=== PATIENT | male | born 1985 | race Caucasian/White ===

== ENCOUNTER → 2017-11-12 | Outpatient (CLI) | payer OTHER ==
[~2017-11-12] MED LIST: ALBUMIN IV; AMOX500 PO; AZIT250 PO; BP MED; Baclofen10 MG PO; CEPH500 PO; CIPR500 PO; CLARITIN PO; CLIN300 PO; CRUTCH2 USE; CYCL10 PO; Cyclobenzaprine5 MG PO; DIPH50 PO; DOCU100 PO; FURO20 PO; GUAPHELA PO; HYDACE5 PO; HYDGUAL120 PO; HYDR1TAB94 PO; IBUP400 PO; LORATADINE10 MG PO; METPRE4DP PO; NADO40 PO; NAPR500 PO; NEXIUM 24HR20 M1 PO; NICO21TP TOP; Nicotine Patch1 EAC5 TD; Norco 10-325 T1 EACH PO; Norco 5-325 Ta1 EACH PO; ONDA4ODT MM; PANT40 PO; RXHYDACE PO; RXHYDGUAS PO; Roxicodone5 MG PO; SPIR50 PO; SULI150 PO; THIA100 PO; Ultram50 MG PO; Vitamin B Comple1 EA PO
== END ==
LOC: PLD 07:37 → LAB SHORT 07:37
DX: L30.5 Pityriasis alba (principal)
CPT/HCPCS: 88312

== ENCOUNTER 2018-06-05 12:33 | Inpatient (IN) | payer OTHER ==
[~2018-06-05] VITALS: Ht 182.9 cm; Wt 122.7 kg
[~2018-06-05 12:33] MED LIST changes: -ALBUMIN IV; -CLARITIN PO; -Cyclobenzaprine5 MG PO; -DIPH50 PO; -FURO20 PO; -HYDR1TAB94 PO; -IBUP400 PO; -LORATADINE10 MG PO; -NADO40 PO; -NEXIUM 24HR20 M1 PO; -NICO21TP TOP; -Nicotine Patch1 EAC5 TD; -ONDA4ODT MM; -PANT40 PO; -Roxicodone5 MG PO; -SPIR50 PO; -THIA100 PO; -Vitamin B Comple1 EA PO
[2018-06-05] MEDS ORDERED: DIPH50 PO (12:51)
[2018-06-05] MEDS ORDERED: LORATADINE10 MG PO (15:44)
[2018-06-06 06:26] LABS: Alanine Aminotransfer (ALT/SGP 43 U/L (12-78); Albumin, Blood 2.4 g/dL (3.4-5.0); Albumin/Globulin Ratio 0.5 (0.8-1.8); Alk Phos 232 U/L (50-136); Anion Gap 9 mmol/L (6-16); Aspartate Aminotrans (AST/SGOT 159 U/L (12-37); Bilirubin, Direct 10.8 mg/dL (0.0-0.3); Bilirubin, Indirect 2.3 mg/dL (0.1-0.7); Bilirubin, Total 13.1 mg/dL (0.1-1.0); Blood Urea Nitrogen 4 mg/dL (8-24); CO2, Blood 26 mmol/L (21-32); Calcium, Blood 7.8 mg/dL (8.5-10.1); Chloride, Blood 101 mmol/L (98-108); Globulin, Blood 4.9 g/dL (2.2-4.0); Glomerular Filtration Rate >60 (60-); Glucose, Blood 81 mg/dL (70-99); Magnesium, Blood 2.1 mg/dL (1.6-2.4); Potassium, Blood 3.5 mmol/L (3.5-5.5); Sodium, Blood 136 mmol/L (136-145); Total Protein, Blood 7.3 g/dL (6.4-8.2)
[2018-06-07 05:35] LABS: BASOPHILS ABSOLUTE AUTO 0.12 K/mm3 (0.00-0.23); BASOPHILS PERCENT AUTO 2 % (0-2); EOSINOPHILS ABSOLUTE AUTO 0.08 K/mm3 (0.00-0.68); EOSINOPHILS PERCENT AUTO 1 % (0-6); Hematocrit 36.2 % (37.0-53.0); Hemoglobin 13.2 g/dL (13.5-17.5); IMMATURE GRAN ABSOLUTE AUTO 0.04 K/mm3 (0.00-0.10); IMMATURE GRAN PERCENT AUTO 1 % (0-1); LYMPHOCYTES ABSOLUTE AUTO 1.32 K/mm3 (0.84-5.20); LYMPHOCYTES PERCENT AUTO 17 % (21-46); MONOCYTES ABSOLUTE AUTO 0.95 K/mm3 (0.16-1.47); MONOCYTES PERCENT AUTO 12 % (4-13); Mean Corpuscular HGB 35.5 pg (26.0-34.0); Mean Corpuscular HGB Conc 36.5 g/dL (31.5-36.5); Mean Corpuscular Volume 97 fL (80-100); Mean Platelet Volume 9.9 fL (9.1-12.4); NEUTROPHILS ABSOLUTE AUTO 5.46 K/mm3 (1.96-9.15); NEUTROPHILS PERCENT AUTO 69 % (41-73); Platelet Count 161 K/mm3 (150-400); RDW Coefficient Variation 19.4 % (11.7-14.2); RDW Standard Deviation 69.1 fL (35.1-46.3); Red Blood Cell Count 3.72 M/mm3 (4.30-5.90); White Blood Cell Count 7.97 K/mm3 (4.00-11.30)
[2018-06-07 06:10] LABS: Alanine Aminotransfer (ALT/SGP 39 U/L (12-78); Albumin, Blood 2.4 g/dL (3.4-5.0); Albumin/Globulin Ratio 0.5 (0.8-1.8); Alk Phos 211 U/L (50-136); Anion Gap 10 mmol/L (6-16); Aspartate Aminotrans (AST/SGOT 151 U/L (12-37); Bilirubin, Indirect 5.4 mg/dL (0.1-0.7); Bilirubin, Total 20.4 mg/dL (0.1-1.0); Blood Urea Nitrogen 6 mg/dL (8-24); Bun/Creatinine Ratio 11.7 (12.0-20.0); CO2, Blood 25 mmol/L (21-32); Calcium, Blood 8.3 mg/dL (8.5-10.1); Chloride, Blood 100 mmol/L (98-108); Creatinine, Blood 0.52 mg/dL (0.60-1.20); Globulin, Blood 4.7 g/dL (2.2-4.0); Glomerular Filtration Rate >60 (60-); Glucose, Blood 71 mg/dL (70-99); Potassium, Blood 3.6 mmol/L (3.5-5.5); Sodium, Blood 135 mmol/L (136-145); Total Protein, Blood 7.1 g/dL (6.4-8.2)
[2018-06-08] MEDS ORDERED: Nicotine Patch1 EAC5 TD (11:49)
[2018-06-08] MEDS ORDERED: THIA100 PO (11:50)
== END 2018-06-08 12:52 | disposition home or self-care (01) | DRG 442 ==
LOC: ER 12:33 → MEDS 14:00 → ENPENDDIS 06-08 10:06 → MEDS 06-08 12:52
PROVIDERS: Hospitalist
DX: K72.00 Acute and subacute hepatic failure without coma (principal); F10.231 Alcohol dependence with withdrawal delirium; K70.11 Alcoholic hepatitis with ascites; M54.9 Dorsalgia, unspecified; F95.2 Tourette's disorder; I10 Essential (primary) hypertension; F17.210 Nicotine dependence, cigarettes, uncomplicated; E87.6 Hypokalemia; F41.9 Anxiety disorder, unspecified; Z63.72 Alcoholism and drug addiction in family; E78.89 Other lipoprotein metabolism disorders; R16.0 Hepatomegaly, not elsewhere classified
CPT/HCPCS: 36415; 76700; 80048; 80053; 80076; 82140; 83690; 83735; 85025; 85610; 85730; 86704; 86708; 86803; 87340; 87493; 96374; 99285-25; J2060; J3411; J3475; J7042

== ENCOUNTER 2018-06-17 16:24 | Emergency (ER) | payer OTHER ==
[~2018-06-17] VITALS: Ht 182.9 cm; Wt 122.5 kg
[~2018-06-17 16:24] MED LIST changes: +DIPH50 PO; +LORATADINE10 MG PO; +Nicotine Patch1 EAC5 TD; +THIA100 PO
[2018-06-17 16:49] LABS: BASOPHILS ABSOLUTE AUTO 0.15 K/mm3 (0.00-0.23); BASOPHILS PERCENT AUTO 1 % (0-2); EOSINOPHILS ABSOLUTE AUTO 0.07 K/mm3 (0.00-0.68); EOSINOPHILS PERCENT AUTO 0 % (0-6); Hematocrit 38.8 % (37.0-53.0); Hemoglobin 14.1 g/dL (13.5-17.5); IMMATURE GRAN ABSOLUTE AUTO 0.29 K/mm3 (0.00-0.10); IMMATURE GRAN PERCENT AUTO 2 % (0-1); LYMPHOCYTES ABSOLUTE AUTO 1.37 K/mm3 (0.84-5.20); LYMPHOCYTES PERCENT AUTO 8 % (21-46); MONOCYTES ABSOLUTE AUTO 1.29 K/mm3 (0.16-1.47); MONOCYTES PERCENT AUTO 8 % (4-13); Mean Corpuscular HGB 36.5 pg (26.0-34.0); Mean Corpuscular HGB Conc 36.3 g/dL (31.5-36.5); Mean Platelet Volume 9.5 fL (9.1-12.4); NEUTROPHILS ABSOLUTE AUTO 13.24 K/mm3 (1.96-9.15); NEUTROPHILS PERCENT AUTO 81 % (41-73); Platelet Count 311 K/mm3 (150-400); RDW Coefficient Variation 19.9 % (11.7-14.2); RDW Standard Deviation 72.6 fL (35.1-46.3); Red Blood Cell Count 3.86 M/mm3 (4.30-5.90); White Blood Cell Count 16.41 K/mm3 (4.00-11.30)
[2018-06-17 16:50] LABS: Mean Corpuscular Volume 101 fL (80-100)
[2018-06-17 17:10] LABS: Alanine Aminotransfer (ALT/SGP 74 U/L (12-78); Albumin, Blood 2.3 g/dL (3.4-5.0); Albumin/Globulin Ratio 0.5 (0.8-1.8); Alk Phos 227 U/L (50-136); Anion Gap 10 mmol/L (6-16); Aspartate Aminotrans (AST/SGOT 206 U/L (12-37); Blood Urea Nitrogen 11 mg/dL (8-24); Bun/Creatinine Ratio 17.1 (12.0-20.0); CO2, Blood 24 mmol/L (21-32); Calcium, Blood 8.4 mg/dL (8.5-10.1); Chloride, Blood 97 mmol/L (98-108); Creatinine, Blood 0.64 mg/dL (0.60-1.20); Glomerular Filtration Rate >60 (60-); Glucose, Blood 105 mg/dL (70-99); Potassium, Blood 3.8 mmol/L (3.5-5.5); Sodium, Blood 131 mmol/L (136-145); Total Protein, Blood 7.3 g/dL (6.4-8.2)
[2018-06-17] MEDS ORDERED: IBUP400 PO (21:56)
== END 2018-06-17 22:11 | disposition home or self-care (01) ==
LOC: ER 16:24
PROVIDERS: Emergency Medicine
DX: K70.10 Alcoholic hepatitis without ascites (principal); M54.9 Dorsalgia, unspecified; Z88.2 Allergy status to sulfonamides; Z79.899 Other long term (current) drug therapy; F17.210 Nicotine dependence, cigarettes, uncomplicated
CPT/HCPCS: 36415; 76705; 80053; 83690; 85025; 99284-25

== ENCOUNTER 2018-06-28 08:59 | Day surgery (SDC) | payer OTHER ==
[~2018-06-28 08:59] MED LIST changes: +IBUP400 PO
[2018-06-28 09:34] LABS: BASOPHILS PERCENT AUTO 1 % (0-2); EOSINOPHILS ABSOLUTE AUTO 0.11 K/mm3 (0.00-0.68); EOSINOPHILS PERCENT AUTO 1 % (0-6); Hemoglobin 13.9 g/dL (13.5-17.5); IMMATURE GRAN ABSOLUTE AUTO 0.16 K/mm3 (0.00-0.10); IMMATURE GRAN PERCENT AUTO 1 % (0-1); LYMPHOCYTES ABSOLUTE AUTO 1.62 K/mm3 (0.84-5.20); LYMPHOCYTES PERCENT AUTO 9 % (21-46); MONOCYTES ABSOLUTE AUTO 1.63 K/mm3 (0.16-1.47); MONOCYTES PERCENT AUTO 9 % (4-13); Mean Corpuscular HGB 35.9 pg (26.0-34.0); Mean Corpuscular HGB Conc 35.6 g/dL (31.5-36.5); Mean Corpuscular Volume 101 fL (80-100); Mean Platelet Volume 9.4 fL (9.1-12.4); NEUTROPHILS ABSOLUTE AUTO 15.51 K/mm3 (1.96-9.15); NEUTROPHILS PERCENT AUTO 81 % (41-73); Platelet Count 278 K/mm3 (150-400); RDW Coefficient Variation 17.6 % (11.7-14.2); Red Blood Cell Count 3.87 M/mm3 (4.30-5.90); White Blood Cell Count 19.13 K/mm3 (4.00-11.30)
[2018-06-28 09:48] LABS: International Normalized Ratio 1.83; Prothrombin Time Results 18.2 Sec (9.7-11.5)
[2018-06-28 09:51] LABS: Alpha Feto Protein, Tumor Mkr 3.1 ng/mL (0.0-8.0); Percent Saturation 34.4 % (20.0-50.0)
[2018-06-28 09:56] LABS: Glutamyl Transpeptidase, GGT 188 U/L (15-85)
[2018-06-28 09:57] LABS: Alanine Aminotransfer (ALT/SGP 131 U/L (12-78); Albumin/Globulin Ratio 0.4 (0.8-1.8); Alk Phos 294 U/L (50-136); Anion Gap 9 mmol/L (6-16); Aspartate Aminotrans (AST/SGOT 246 U/L (12-37); Blood Urea Nitrogen 27 mg/dL (8-24); Bun/Creatinine Ratio 21.1 (12.0-20.0); CO2, Blood 24 mmol/L (21-32); Calcium, Blood 8.2 mg/dL (8.5-10.1); Chloride, Blood 94 mmol/L (98-108); Creatinine, Blood 1.28 mg/dL (0.60-1.20); Globulin, Blood 4.8 g/dL (2.2-4.0); Glomerular Filtration Rate >60 (60-); Glucose, Blood 81 mg/dL (70-99); Potassium, Blood 4.2 mmol/L (3.5-5.5); Sodium, Blood 127 mmol/L (136-145); Total Protein, Blood 6.8 g/dL (6.4-8.2)
[2018-06-28 10:00] LABS: Bilirubin, Total 24.6 mg/dL (0.1-1.0)
[2018-06-28 10:45] LABS: Automated BF WBC Count 0.095 K/mm3 (0-999); Body Fluid WBC Count 95 /mm3 (0-999)
[2018-06-28 10:56] LABS: Albumin, Body Fluid 0.3 g/dL; Protein, Body Fluid 0.6 g/dL
[2018-06-28 11:33] LABS: RBC Count, Body Fluid 133 /mm3 (0-0)
[2018-06-28 11:49] LABS: Appearance, Body Fluid Clear (Clear); Color, Body Fluid Yellow (None-Yellow)
[2018-06-28 11:50] LABS: Total Cell Count, Body Fluid 100
[2018-06-29 10:09] LABS: HBSAG SCREEN Negative (Negative); HEP A AB, IGM Negative (Negative); HEP B CORE AB, IGM Negative (Negative); HEP C VIRUS AB 0.1 (0.0-0.9)
[2018-07-06] MEDS ORDERED: Roxicodone5 MG PO (16:09)
== END 2018-06-28 22:40 | disposition home or self-care (01) ==
LOC: US 08:59
PROVIDERS: Internal Medicine Gastroenterology
DX: K70.10 Alcoholic hepatitis without ascites (principal); R18.8 Other ascites; F10.20 Alcohol dependence, uncomplicated
CPT/HCPCS: 36415; 49083; 80053; 80074; 82042; 82105; 82140; 82390; 82728; 82977; 83516; 83540; 83550; 84157; 85025; 85610; 86038; 86376; 88108; 89051

== ENCOUNTER 2018-06-30 08:49 | Day surgery (SDC) | payer OTHER ==
[2018-07-01] MEDS ORDERED: Roxicodone5 MG PO (22:33)
[2018-07-06] MEDS ORDERED: Roxicodone5 MG PO (16:09)
== END 2018-06-30 16:14 | disposition home or self-care (01) ==
LOC: ATC 08:49
DX: N17.9 Acute kidney failure, unspecified (principal)
CPT/HCPCS: 96365; 96366; P9041

== ENCOUNTER 2018-07-01 00:17 | Day surgery (SDC) | payer OTHER ==
[2018-07-01 15:16] LABS: Source, Urine Clean Catch
[2018-07-01 15:27] LABS: Appearance, Urine Clear (Clear); Blood, Urine 2+ (Neg); Color, Urine Yellow (P-Yellow); Glucose Qualitative, Urine Neg (Neg); Ketones, Urine Neg (Neg); Leukocyte Esterase, Urine 1+ (Neg); Nitrite, Urine Neg (Neg); Protein, Urine 1+ (Neg); Urobilinogen, Urine 2+ (Normal)
[2018-07-01 15:44] LABS: Creatinine, Urine Random 70.8 mg/dL (27.00-270.00)
[2018-07-01 15:45] LABS: Bilirubin, Urine 3+ (Neg)
[2018-07-01 15:47] LABS: Hyaline Casts 0-2 /lpf (0-2)
[2018-07-01 15:48] LABS: Bacteria Rare /hpf; Red Blood Cells, Urine 0-2 /hpf (0-2); Squamous Epithelial Cells Rare /hpf (Few); Transitional Epithelial Cells Few /hpf (0-Rare)
[2018-07-01] MEDS ORDERED: Roxicodone5 MG PO (22:33)
[2018-07-06] MEDS ORDERED: Roxicodone5 MG PO (16:09)
== END 2018-07-01 18:04 | disposition home or self-care (01) ==
LOC: ATC 00:17
PROVIDERS: Internal Medicine Gastroenterology
DX: K70.10 Alcoholic hepatitis without ascites (principal); N17.9 Acute kidney failure, unspecified
CPT/HCPCS: 81001; 82570; 84300; 87086; 96365; 96366; P9041

== ENCOUNTER 2018-07-01 19:57 | Emergency (ER) | payer OTHER ==
[~2018-07-01] VITALS: Ht 182.9 cm; Wt 127.0 kg
[2018-07-01 21:03] LABS: Source, Urine Clean Catch
[2018-07-01 21:05] LABS: Blood, Urine 2+ (Neg); Glucose Qualitative, Urine Neg (Neg); Ketones, Urine Neg (Neg); Leukocyte Esterase, Urine 1+ (Neg); Nitrite, Urine Neg (Neg); Protein, Urine 1+ (Neg); Urobilinogen, Urine 1+ (Normal)
[2018-07-01 21:14] LABS: Appearance, Urine Clear (Clear); Bilirubin, Urine 2+ (Neg); Color, Urine Amber (P-Yellow)
[2018-07-01 21:15] LABS: Amorphous Light (0-Heavy); Bacteria Few /hpf; Granular Casts 0-2 /lpf (0); Red Blood Cells, Urine 0-2 /hpf (0-2); Squamous Epithelial Cells Rare /hpf (Few)
[2018-07-01 21:16] LABS: Epithelial Cell Casts 0-2 /lpf (0)
[2018-07-01 21:55] LABS: BASOPHILS ABSOLUTE AUTO 0.07 K/mm3 (0.00-0.23); BASOPHILS PERCENT AUTO 1 % (0-2); EOSINOPHILS ABSOLUTE AUTO 0.16 K/mm3 (0.00-0.68); EOSINOPHILS PERCENT AUTO 1 % (0-6); Hematocrit 32.7 % (37.0-53.0); Hemoglobin 11.4 g/dL (13.5-17.5); IMMATURE GRAN ABSOLUTE AUTO 0.11 K/mm3 (0.00-0.10); IMMATURE GRAN PERCENT AUTO 1 % (0-1); LYMPHOCYTES ABSOLUTE AUTO 1.26 K/mm3 (0.84-5.20); LYMPHOCYTES PERCENT AUTO 9 % (21-46); MONOCYTES ABSOLUTE AUTO 1.32 K/mm3 (0.16-1.47); MONOCYTES PERCENT AUTO 10 % (4-13); Mean Corpuscular HGB 36.4 pg (26.0-34.0); Mean Corpuscular HGB Conc 34.9 g/dL (31.5-36.5); Mean Platelet Volume 9.1 fL (9.1-12.4); NEUTROPHILS PERCENT AUTO 79 % (41-73); Platelet Count 165 K/mm3 (150-400); RDW Coefficient Variation 17.2 % (11.7-14.2); RDW Standard Deviation 65.3 fL (35.1-46.3); Red Blood Cell Count 3.13 M/mm3 (4.30-5.90); White Blood Cell Count 13.82 K/mm3 (4.00-11.30)
[2018-07-01 21:56] LABS: Mean Corpuscular Volume 105 fL (80-100)
[2018-07-01 22:09] LABS: International Normalized Ratio 1.76; Prothrombin Time Results 17.6 Sec (9.7-11.5)
[2018-07-01 22:17] LABS: Alanine Aminotransfer (ALT/SGP 96 U/L (12-78); Albumin, Blood 3.4 g/dL (3.4-5.0); Alk Phos 219 U/L (50-136); Anion Gap 11 mmol/L (6-16); Aspartate Aminotrans (AST/SGOT 173 U/L (12-37); Bilirubin, Total 23.1 mg/dL (0.1-1.0); Blood Urea Nitrogen 34 mg/dL (8-24); Bun/Creatinine Ratio 28.6 (12.0-20.0); CO2, Blood 24 mmol/L (21-32); Calcium, Blood 8.2 mg/dL (8.5-10.1); Chloride, Blood 97 mmol/L (98-108); Creatinine, Blood 1.19 mg/dL (0.60-1.20); Globulin, Blood 3.5 g/dL (2.2-4.0); Glomerular Filtration Rate >60 (60-); Glucose, Blood 102 mg/dL (70-99); Potassium, Blood 4.2 mmol/L (3.5-5.5); Sodium, Blood 132 mmol/L (136-145); Total Protein, Blood 6.9 g/dL (6.4-8.2)
[2018-07-01] MEDS ORDERED: Roxicodone5 MG PO (22:33)
== END 2018-07-01 23:04 | disposition home or self-care (01) ==
LOC: ER 19:57
PROVIDERS: Emergency Medicine
DX: K70.31 Alcoholic cirrhosis of liver with ascites (principal); Z88.2 Allergy status to sulfonamides; Z79.899 Other long term (current) drug therapy; F17.210 Nicotine dependence, cigarettes, uncomplicated
CPT/HCPCS: 36415; 80053; 81001; 82140; 83690; 85025; 85610; 87086; 99284

== ENCOUNTER 2018-08-10 13:10 | Day surgery (SDC) | payer OTHER ==
[~2018-08-10 13:10] MED LIST changes: +ALBUMIN IV; +CLARITIN PO; +Cyclobenzaprine5 MG PO; +FURO20 PO; +HYDR1TAB94 PO; +NADO40 PO; +NEXIUM 24HR20 M1 PO; +NICO21TP TOP; +ONDA4ODT MM; +PANT40 PO; +Roxicodone5 MG PO; +SPIR50 PO; +Vitamin B Comple1 EA PO
[2018-08-10 14:11] LABS: Anion Gap 8 mmol/L (6-16); Blood Urea Nitrogen 8 mg/dL (8-24); Bun/Creatinine Ratio 9.1 (12.0-20.0); CO2, Blood 24 mmol/L (21-32); Calcium, Blood 8.9 mg/dL (8.5-10.1); Chloride, Blood 103 mmol/L (98-108); Creatinine, Blood 0.88 mg/dL (0.60-1.20); Glomerular Filtration Rate >60 (60-); Glucose, Blood 105 mg/dL (70-99); Phosphorus, Blood 4.5 mg/dL (2.5-4.9); Potassium, Blood 4.1 mmol/L (3.5-5.5); Sodium, Blood 135 mmol/L (136-145)
[2018-09-28] MEDS ORDERED: SILD50TA PO (11:13)
[2018-09-28] MEDS ORDERED: B Complex #11 EACH PO (11:13)
[2018-11-10] MEDS ORDERED: PANT40 PO (14:55)
[2018-11-10] MEDS ORDERED: SILD25T PO (14:55)
[2018-11-10] MEDS ORDERED: SPIR50 PO (14:55)
[2018-11-10] MEDS ORDERED: Vitamin B Comple1 EA PO (14:55)
[2018-11-10] MEDS ORDERED: PROP10 PO (14:56)
[2018-11-10] MEDS ORDERED: FURO40 PO (14:56)
[2018-11-10] MEDS ORDERED: Omeprazole20 M1 PO (14:56)
== END 2018-08-10 23:09 | disposition home or self-care (01) ==
LOC: US 13:10 → LAB 13:10 → US 14:00
PROVIDERS: Internal Medicine
DX: N17.9 Acute kidney failure, unspecified (principal); K70.11 Alcoholic hepatitis with ascites
CPT/HCPCS: 36415; 80069; 85730

== ENCOUNTER 2018-10-19 13:30 | Day surgery (SDC) | payer OTHER ==
[~2018-10-19 13:30] MED LIST changes: +B Complex #11 EACH PO; +SILD50TA PO
[2018-11-10] MEDS ORDERED: PANT40 PO (14:55)
[2018-11-10] MEDS ORDERED: Vitamin B Comple1 EA PO (14:55)
[2018-11-10] MEDS ORDERED: SPIR50 PO (14:55)
[2018-11-10] MEDS ORDERED: SILD25T PO (14:55)
[2018-11-10] MEDS ORDERED: FURO40 PO (14:56)
[2018-11-10] MEDS ORDERED: PROP10 PO (14:56)
[2018-11-10] MEDS ORDERED: Omeprazole20 M1 PO (14:56)
== END 2018-10-19 15:09 | disposition home or self-care (01) ==
LOC: ORSCSDS 13:30
PROVIDERS: Internal Medicine Gastroenterology
PROC: 06L38CZ Occlusion of Esophageal Vein with Extraluminal Device, Via Natural or Artificial Opening Endoscopic (ICD-10-PCS; principal; 2018-10-19 14:45)
DX: I85.00 Esophageal varices without bleeding (principal); K76.6 Portal hypertension; K70.11 Alcoholic hepatitis with ascites; I10 Essential (primary) hypertension; Z68.35 Body mass index [BMI] 35.0-35.9, adult; K31.89 Other diseases of stomach and duodenum; E66.9 Obesity, unspecified; Z79.899 Other long term (current) drug therapy
CPT/HCPCS: J2250; J7120

== ENCOUNTER 2018-11-25 09:48 | Day surgery (SDC) | payer OTHER ==
[~2018-11-25] VITALS: Ht 182.9 cm; Wt 112.7 kg
[~2018-11-25 09:48] MED LIST changes: +FURO40 PO; +Omeprazole20 M1 PO; +PROP10 PO; +SILD25T PO
--- NOTE | 2018-11-25 12:53 | NUR ---
11/25/18 1253 Anna Frost PT. WITH BLOODY NOSE AFTER PROCEDURE. DR. LAROSE AWARE. PT. INSTRUCTED PROBABLY FROM HIS NASAL CANNULA BUT IF CONTINUED TO MAKE SURE & CALL NOSE WASN'T BLEEDING UPON DISCHARGE.
== END 2018-11-25 12:05 | disposition home or self-care (01) ==
LOC: ORSCSDS 09:48
PROVIDERS: Internal Medicine Gastroenterology
PROC: 06L38CZ Occlusion of Esophageal Vein with Extraluminal Device, Via Natural or Artificial Opening Endoscopic (ICD-10-PCS; principal; 2018-11-25 11:00)
DX: I85.00 Esophageal varices without bleeding (principal); K70.10 Alcoholic hepatitis without ascites; I10 Essential (primary) hypertension; K74.60 Unspecified cirrhosis of liver; F17.210 Nicotine dependence, cigarettes, uncomplicated; E66.9 Obesity, unspecified; Z68.33 Body mass index [BMI] 33.0-33.9, adult; K76.6 Portal hypertension; K31.89 Other diseases of stomach and duodenum; Z79.899 Other long term (current) drug therapy
CPT/HCPCS: J7120

== ENCOUNTER 2019-01-24 12:50 | Day surgery (SDC) | payer OTHER ==
--- NOTE | 2019-01-24 13:06 | NUR ---
INTO [facility] ADMISSION STARTED. Ambulatory in Day Surgery Patient States Post-Procedure ride home has been arranged. History, Chart, Medications and Allergies reviewed before start of procedure.Lungs clear T/O to Auscultation.
--- NOTE | 2019-01-24 13:58 | NUR ---
01/24/19 1358 Benedict Amador Bite Block Placed3-LEAD EKG REVIEWED WITH PHYSICIAN PRIOR TO START OF PROCEDURE.Patient to ENDO 2. History, Chart, Medications and Allergies reviewed before start of procedure. MONITOR INTACT WITH CONTINUOUS PULSE OXIMETRY AND INTERMITTENT BP.O2 VIA N/C INTACT THROUGHOUT SEDATION/PROCEDURE.See Anesthesia record.
--- NOTE | 2019-01-24 14:42 | NUR ---
Discharge instructions reviewed with patient. Patient verbalizes understanding. Copy given to patient to take home. Patient States Post-Procedure ride home has been arranged. Discharged via wheelchair to private car for ride home.
== END 2019-01-24 22:50 | disposition home or self-care (01) ==
LOC: ORSCMMR 12:50 → ORD 14:15 → ORSCMMR 22:50
PROVIDERS: Internal Medicine Gastroenterology
PROC: 0DJ08ZZ Inspection of Upper Intestinal Tract, Via Natural or Artificial Opening Endoscopic (ICD-10-PCS; principal; 2019-01-24 14:15)
DX: K74.60 Unspecified cirrhosis of liver (principal); I85.00 Esophageal varices without bleeding; F17.210 Nicotine dependence, cigarettes, uncomplicated; Z79.899 Other long term (current) drug therapy
CPT/HCPCS: J2704; J7120

== ENCOUNTER 2019-02-28 09:31 | Inpatient (IN) | payer OTHER ==
[~2019-02-28] VITALS: Ht 180.3 cm; Wt 117.8 kg
[2019-02-28 10:31] LABS: BASOPHILS ABSOLUTE AUTO 0.03 K/mm3 (0.00-0.23); BASOPHILS PERCENT AUTO 1 % (0-2); EOSINOPHILS ABSOLUTE AUTO 0.16 K/mm3 (0.00-0.68); EOSINOPHILS PERCENT AUTO 3 % (0-6); Hemoglobin 11.2 g/dL (13.5-17.5); IMMATURE GRAN ABSOLUTE AUTO 0.01 K/mm3 (0.00-0.10); IMMATURE GRAN PERCENT AUTO 0 % (0-1); LYMPHOCYTES ABSOLUTE AUTO 1.27 K/mm3 (0.84-5.20); LYMPHOCYTES PERCENT AUTO 24 % (21-46); MONOCYTES ABSOLUTE AUTO 0.74 K/mm3 (0.16-1.47); MONOCYTES PERCENT AUTO 14 % (4-13); Mean Corpuscular HGB 23.3 pg (26.0-34.0); Mean Corpuscular HGB Conc 30.3 g/dL (31.5-36.5); Mean Corpuscular Volume 77 fL (80-100); Mean Platelet Volume 9.6 fL (9.1-12.4); NEUTROPHILS ABSOLUTE AUTO 3.01 K/mm3 (1.96-9.15); NEUTROPHILS PERCENT AUTO 58 % (41-73); Platelet Count 122 K/mm3 (150-400); RDW Coefficient Variation 17.1 % (11.7-14.2); RDW Standard Deviation 47.6 fL (35.1-46.3); White Blood Cell Count 5.22 K/mm3 (4.00-11.30)
[2019-02-28 10:58] LABS: Ethanol (Alcohol), Blood, Med <3 mg/dL
[2019-02-28 10:59] LABS: Alanine Aminotransfer (ALT/SGP 39 U/L (12-78); Albumin, Blood 3.5 g/dL (3.4-5.0); Albumin/Globulin Ratio 0.9 (0.8-1.8); Alk Phos 160 U/L (50-136); Anion Gap 6 mmol/L (6-16); Aspartate Aminotrans (AST/SGOT 38 U/L (12-37); Bilirubin, Total 0.7 mg/dL (0.1-1.0); Blood Urea Nitrogen 12 mg/dL (8-24); Bun/Creatinine Ratio 14.4 (12.0-20.0); CO2, Blood 24 mmol/L (21-32); Calcium, Blood 8.3 mg/dL (8.5-10.1); Chloride, Blood 108 mmol/L (98-108); Creatinine, Blood 0.83 mg/dL (0.60-1.20); Globulin, Blood 3.8 g/dL (2.2-4.0); Glomerular Filtration Rate >60 (60-); Glucose, Blood 88 mg/dL (70-99); Potassium, Blood 3.7 mmol/L (3.5-5.5); Sodium, Blood 138 mmol/L (136-145); Total Protein, Blood 7.3 g/dL (6.4-8.2)
[2019-02-28 11:08] LABS: International Normalized Ratio 1.35; Prothrombin Time Results 13.9 Sec (9.7-11.5)
[2019-02-28] MEDS ORDERED: Zocor20 MG PO (12:01)
[2019-02-28 12:38] LABS: Alanine Aminotransfer (ALT/SGP 40 U/L (12-78); Albumin, Blood 3.5 g/dL (3.4-5.0); Albumin/Globulin Ratio 0.9 (0.8-1.8); Alk Phos 161 U/L (50-136); Anion Gap 6 mmol/L (6-16); Aspartate Aminotrans (AST/SGOT 38 U/L (12-37); Bilirubin, Total 0.7 mg/dL (0.1-1.0); Blood Urea Nitrogen 12 mg/dL (8-24); Bun/Creatinine Ratio 13.8 (12.0-20.0); CO2, Blood 24 mmol/L (21-32); Calcium, Blood 8.4 mg/dL (8.5-10.1); Chloride, Blood 108 mmol/L (98-108); Creatinine, Blood 0.87 mg/dL (0.60-1.20); Globulin, Blood 3.8 g/dL (2.2-4.0); Glomerular Filtration Rate >60 (60-); Glucose, Blood 74 mg/dL (70-99); Potassium, Blood 3.9 mmol/L (3.5-5.5); Sodium, Blood 138 mmol/L (136-145); Total Protein, Blood 7.3 g/dL (6.4-8.2)
--- NOTE | 2019-02-28 18:18 | NUR ---
SHIFT SUMMARY PT IS A&OX3, WITH ACUTE CHANGES OR COMPLICATIONS SINCE ARRIVING TO OUR FLOOR AT 1630. PT HAS BEEN STARTED ON CLEAR LIQUIDS, VSS, NO PAIN AT THIS TIME. IV'S IN BOTH AC'S, FLUIDS AND PROTONIX RUNNING. CURRENTLY NO NVD. TELE NSR 60'S. BED IN LOWEST POSITION, BLONGINGS IN REACH, CALL LIGHT IN HAND, PT EDUCATED TO SAFETY PROTOCOL.
--- NOTE | 2019-02-28 19:35 | NUR ---
ASSUMED CARE PT RESTING IN ROOM COMFORTABLY AT THIS TIME. PER DAY SHIFT PT TO GO FOR ENDOSCOPY TOMORROW, ON CLEAR LIQUID NO REDS UNTIL 0300, THEN ICE CHIPS AND WATER. PT THEN TO BE NPO AT 0700 FOR SCOPE. RESP EVEN UNLABORED ON RA W/ SATS >95%. DENIES CP, REPORTS CHRONIC BACK PAIN, PT TO BE MEDICATED PER EMAR. PT HAS PROTONIX GTT, AND OCTREOTIDE GTT INFUSING IN BILAT AC PIV'S. PT INDEPENDENT IN ROOM TO RR. PT DENIES BLOODY STOOL, BUT DOES REPORT DIARRHEA. CALL LIGHT IS IN REACH. PT CALLS APPROPRIATELY.
[2019-03-01 04:34] LABS: BASOPHILS ABSOLUTE AUTO 0.05 K/mm3 (0.00-0.23); BASOPHILS PERCENT AUTO 1 % (0-2); EOSINOPHILS ABSOLUTE AUTO 0.18 K/mm3 (0.00-0.68); EOSINOPHILS PERCENT AUTO 4 % (0-6); Hematocrit 35.5 % (37.0-53.0); Hemoglobin 10.6 g/dL (13.5-17.5); IMMATURE GRAN ABSOLUTE AUTO 0.01 K/mm3 (0.00-0.10); IMMATURE GRAN PERCENT AUTO 0 % (0-1); LYMPHOCYTES ABSOLUTE AUTO 1.52 K/mm3 (0.84-5.20); LYMPHOCYTES PERCENT AUTO 32 % (21-46); MONOCYTES ABSOLUTE AUTO 0.66 K/mm3 (0.16-1.47); MONOCYTES PERCENT AUTO 14 % (4-13); Mean Corpuscular HGB 23.2 pg (26.0-34.0); Mean Corpuscular HGB Conc 29.9 g/dL (31.5-36.5); Mean Corpuscular Volume 78 fL (80-100); Mean Platelet Volume 9.8 fL (9.1-12.4); NEUTROPHILS ABSOLUTE AUTO 2.38 K/mm3 (1.96-9.15); NEUTROPHILS PERCENT AUTO 50 % (41-73); Platelet Count 112 K/mm3 (150-400); RDW Coefficient Variation 17.2 % (11.7-14.2); RDW Standard Deviation 47.8 fL (35.1-46.3); Red Blood Cell Count 4.57 M/mm3 (4.30-5.90)
[2019-03-01 04:58] LABS: Alanine Aminotransfer (ALT/SGP 37 U/L (12-78); Albumin, Blood 3.2 g/dL (3.4-5.0); Albumin/Globulin Ratio 0.9 (0.8-1.8); Alk Phos 135 U/L (50-136); Anion Gap 4 mmol/L (6-16); Aspartate Aminotrans (AST/SGOT 39 U/L (12-37); Bilirubin, Total 0.9 mg/dL (0.1-1.0); Blood Urea Nitrogen 11 mg/dL (8-24); Bun/Creatinine Ratio 13.7 (12.0-20.0); CO2, Blood 24 mmol/L (21-32); Chloride, Blood 110 mmol/L (98-108); Globulin, Blood 3.4 g/dL (2.2-4.0); Glomerular Filtration Rate >60 (60-); Glucose, Blood 67 mg/dL (70-99); Sodium, Blood 138 mmol/L (136-145); Total Protein, Blood 6.6 g/dL (6.4-8.2)
[2019-03-01 05:09] LABS: International Normalized Ratio 1.41; Prothrombin Time Results 14.5 Sec (9.7-11.5)
--- NOTE | 2019-03-01 05:38 | NUR ---
SHIFT SUMMARY PT SLEEPING IN ROOM COMFORTABLY AT THIS TIME. NO ACUTE CHANGES IN STATUS T.O NIGHT. PT DID NOT SLEEP WELL, FINALLY FELL ALSEEP AT APPROX 0300. PT REPORTS CAN'T SLEEP ON HIS BACK, PT EDUCATED ABOUT SLEEPING ON SIDE WITH ARM PROPPED ON PILLOW TO PREVENT OCCLUSION OF PIV IN AC. PT ABLE TO SLEEP W/ POSITION ADJUSTMENT. DENIES ANY CP. WAS MEDICATED PER EMAR FOR CHRONIC BACK PAIN. RESP EVEN UNLABORED ON RA W/ SATS >92%. DENIES OTHER NEEDS A THIS TIME. CALL LIGHT IN REACH. PT CALLS APPROPRIATELY.
--- NOTE | 2019-03-01 09:00 | NUR ---
INTO [facility] VIA [facility]. PT REPORTS 7/10 LOW BACK PAIN. DENIES NAUSEA. HISTORY AND ALLERGIES REVIEWED. NPO STATUS CONFIRMED. LUNGS WITH SCATTERED RHONCHI AND WHEEZES THROUGH OUT. SATS>90% ON RA. DR. CERON MADE AWARE OF ADVENTICIOUS BREATH SOUNDS. NO NEW ORDERS AT THIS TIME.
--- NOTE | 2019-03-01 09:21 | NUR ---
03/01/19 0921 Irving Terrell History, Chart, Medications and Allergies reviewed before start of procedure.MONITOR INTACT WITH CONTINUOUS PULSE OXIMETRY AND INTERMITTENT BP.3-LEAD EKG REVIEWED WITH PHYSICIAN PRIOR TO START OF PROCEDURE.O2 VIA N/C INTACT THROUGHOUT SEDATION/PROCEDURE. Patient confirms NPO status and agrees with scheduled surgery.See Anesthesia record.
--- NOTE | 2019-03-01 12:30 | NUR ---
Advance Directive Education conducted. Patient is sitting on the edge of his bed moments after returning to his room from his procedure. Patient is pleasant and talkative. Patient did have questions about the advance directive. We discussed his questions as I also talked about the importance and the process of the advance directive. I handed patient the booklet and went through each section and explained about the health care customer service representative. I left the advance directive booklet with the patient. Patient stated that he would go over the those decisions with his fiance and then hand it in for filing in the medical record.
--- NOTE | 2019-03-01 18:08 | NUR ---
PT TRANSFERED PT TRANSFERED TO MEDICAL FLOOR. PT IN STABLE CONDITION WITH VSS. REPORT GIVEN TO IVELISSE BRANNON RN WHO DENIED ANY FURTHER QUESTIONS ABOUT THE PT. NO CHANGES IN ASSESSMENT PRIOR TO TRANSFER.
--- NOTE | 2019-03-01 18:15 | NUR ---
PT. ARRIVED TO FLOOR VIA WC FROM [facility]-06. PT. A&O PLEASANT AND COOPERATIVE. DENIES PAIN AND NAUSEA . RUBENS DOCKERY, ORDERED NEW BAG FROM PHARMACY.
--- NOTE | 2019-03-02 04:13 | NUR ---
33 year old Male with liver disease and hx of upper gi bleed with esoph. varicies had EGD and a varicie was banded. PT says last time he had same 6 month ago. Reports he stopped ETOH x 1 year due to liver failure. Encouraged smoking cessation. He is tolerating full liquid diet and activity. voids large amts of clear straw urine. continues on sandostatin gtt and iv protonix. CO chronic back pain or 7 or 8 relieved by IV morphine 4 mg x 2 .
[2019-03-02 05:48] LABS: BASOPHILS ABSOLUTE AUTO 0.04 K/mm3 (0.00-0.23); BASOPHILS PERCENT AUTO 1 % (0-2); EOSINOPHILS ABSOLUTE AUTO 0.13 K/mm3 (0.00-0.68); EOSINOPHILS PERCENT AUTO 3 % (0-6); Hematocrit 33.1 % (37.0-53.0); Hemoglobin 10.1 g/dL (13.5-17.5); IMMATURE GRAN ABSOLUTE AUTO 0.01 K/mm3 (0.00-0.10); IMMATURE GRAN PERCENT AUTO 0 % (0-1); LYMPHOCYTES ABSOLUTE AUTO 1.54 K/mm3 (0.84-5.20); LYMPHOCYTES PERCENT AUTO 30 % (21-46); MONOCYTES ABSOLUTE AUTO 0.62 K/mm3 (0.16-1.47); MONOCYTES PERCENT AUTO 12 % (4-13); Mean Corpuscular HGB 23.3 pg (26.0-34.0); Mean Corpuscular HGB Conc 30.5 g/dL (31.5-36.5); Mean Corpuscular Volume 76 fL (80-100); Mean Platelet Volume 9.6 fL (9.1-12.4); NEUTROPHILS ABSOLUTE AUTO 2.78 K/mm3 (1.96-9.15); NEUTROPHILS PERCENT AUTO 54 % (41-73); Platelet Count 117 K/mm3 (150-400); RDW Coefficient Variation 16.6 % (11.7-14.2); RDW Standard Deviation 46.1 fL (35.1-46.3); Red Blood Cell Count 4.34 M/mm3 (4.30-5.90); White Blood Cell Count 5.12 K/mm3 (4.00-11.30)
--- NOTE | 2019-03-02 19:00 | NUR ---
PT. WITHOUT CHANGE TODAY BUT APPEARS TO BE CONFUSED TO WHEN HE CAME IN AND HAD HIS PROCEDURE, THINKING HE SHOULD BE ABLE TO GO HOME TODAY. WROTE WHEN HE CAME IN WHEN HE HAD HIS PROCEDURE AND WHEN THE 72 HOURS WERE UP ON THE BOARD. SEEMED TO UNDERSTAND ONCE I DID THAT. NO OTHE CHANGES THIS SHIFT.
--- NOTE | 2019-03-03 03:30 | NUR ---
pt continues on sandostatin gtt continous for upper gi bleed and iv protonix bid. on rocephin post esoph varicie banding in upper endo. chronic back pain well relieved by morphine 4 mg iv q 4 hrs prn. discussed with PT effect of tobacco abuse and lungs and gi and effect of poor diet such as large amts of carbonated beverages. He says he sees GI DR for procedures as outpt endo and he feels well enough to go home when cleared. Bowels moving without s/sx of gi bleeding. has needed blood transfusion in past to treat.
[2019-03-03 05:18] LABS: BASOPHILS ABSOLUTE AUTO 0.08 K/mm3 (0.00-0.23); BASOPHILS PERCENT AUTO 1 % (0-2); EOSINOPHILS ABSOLUTE AUTO 0.16 K/mm3 (0.00-0.68); EOSINOPHILS PERCENT AUTO 2 % (0-6); Hematocrit 35.3 % (37.0-53.0); Hemoglobin 11.2 g/dL (13.5-17.5); IMMATURE GRAN PERCENT AUTO 2 % (0-1); LYMPHOCYTES ABSOLUTE AUTO 1.89 K/mm3 (0.84-5.20); LYMPHOCYTES PERCENT AUTO 29 % (21-46); MONOCYTES ABSOLUTE AUTO 0.59 K/mm3 (0.16-1.47); MONOCYTES PERCENT AUTO 9 % (4-13); Mean Corpuscular HGB 23.4 pg (26.0-34.0); Mean Corpuscular HGB Conc 31.7 g/dL (31.5-36.5); Mean Corpuscular Volume 74 fL (80-100); NEUTROPHILS ABSOLUTE AUTO 3.79 K/mm3 (1.96-9.15); NEUTROPHILS PERCENT AUTO 57 % (41-73); RDW Coefficient Variation 17.2 % (11.7-14.2); RDW Standard Deviation 44.1 fL (35.1-46.3); Red Blood Cell Count 4.79 M/mm3 (4.30-5.90); White Blood Cell Count 6.61 K/mm3 (4.00-11.30)
[2019-03-03 05:19] LABS: Mean Platelet Volume 10.2 fL (9.1-12.4); Platelet Count 114 K/mm3 (150-400)
[2019-03-03 06:02] LABS: Alanine Aminotransfer (ALT/SGP 30 U/L (12-78); Albumin, Blood 3.2 g/dL (3.4-5.0); Albumin/Globulin Ratio 0.9 (0.8-1.8); Alk Phos 128 U/L (50-136); Anion Gap 7 mmol/L (6-16); Aspartate Aminotrans (AST/SGOT 28 U/L (12-37); Bilirubin, Total 0.6 mg/dL (0.1-1.0); Blood Urea Nitrogen 14 mg/dL (8-24); Bun/Creatinine Ratio 19.2 (12.0-20.0); CO2, Blood 26 mmol/L (21-32); Calcium, Blood 8.4 mg/dL (8.5-10.1); Chloride, Blood 106 mmol/L (98-108); Creatinine, Blood 0.73 mg/dL (0.60-1.20); Globulin, Blood 3.4 g/dL (2.2-4.0); Glomerular Filtration Rate >60 (60-); Glucose, Blood 88 mg/dL (70-99); Sodium, Blood 139 mmol/L (136-145); Total Protein, Blood 6.6 g/dL (6.4-8.2)
--- NOTE | 2019-03-03 18:42 | NUR ---
PATIENT HAS OCTREOTIDE RUNNING THIS THIS SHIFT ONLY STOPPING WHEN PATIENT GOES OUT TO SMOKE. PATIENT TO DISCHARGE ON WEDNESDAY. PATIENT MEDICATED FOR PAIN PER EMAR. NO ACUTE CHANGES THIS SHIFT.
[2019-03-04 05:14] LABS: BASOPHILS ABSOLUTE AUTO 0.03 K/mm3 (0.00-0.23); BASOPHILS PERCENT AUTO 1 % (0-2); EOSINOPHILS ABSOLUTE AUTO 0.16 K/mm3 (0.00-0.68); EOSINOPHILS PERCENT AUTO 3 % (0-6); Hematocrit 35.9 % (37.0-53.0); Hemoglobin 10.9 g/dL (13.5-17.5); IMMATURE GRAN ABSOLUTE AUTO 0.03 K/mm3 (0.00-0.10); IMMATURE GRAN PERCENT AUTO 1 % (0-1); LYMPHOCYTES ABSOLUTE AUTO 1.59 K/mm3 (0.84-5.20); LYMPHOCYTES PERCENT AUTO 30 % (21-46); MONOCYTES ABSOLUTE AUTO 0.41 K/mm3 (0.16-1.47); MONOCYTES PERCENT AUTO 8 % (4-13); Mean Corpuscular HGB 23.3 pg (26.0-34.0); Mean Corpuscular HGB Conc 30.4 g/dL (31.5-36.5); NEUTROPHILS PERCENT AUTO 58 % (41-73); RDW Coefficient Variation 16.7 % (11.7-14.2); RDW Standard Deviation 46.5 fL (35.1-46.3); Red Blood Cell Count 4.67 M/mm3 (4.30-5.90); White Blood Cell Count 5.32 K/mm3 (4.00-11.30)
[2019-03-04 05:19] LABS: Mean Corpuscular Volume 77 fL (80-100); Platelet Count 106 K/mm3 (150-400)
[2019-03-04 05:44] LABS: Alanine Aminotransfer (ALT/SGP 33 U/L (12-78); Albumin, Blood 3.4 g/dL (3.4-5.0); Alk Phos 129 U/L (50-136); Anion Gap 8 mmol/L (6-16); Aspartate Aminotrans (AST/SGOT 38 U/L (12-37); Bilirubin, Total 0.9 mg/dL (0.1-1.0); Blood Urea Nitrogen 11 mg/dL (8-24); Bun/Creatinine Ratio 16.9 (12.0-20.0); CO2, Blood 21 mmol/L (21-32); Calcium, Blood 8.7 mg/dL (8.5-10.1); Chloride, Blood 106 mmol/L (98-108); Creatinine, Blood 0.65 mg/dL (0.60-1.20); Globulin, Blood 3.5 g/dL (2.2-4.0); Glomerular Filtration Rate >60 (60-); Glucose, Blood 88 mg/dL (70-99); Potassium, Blood 4.5 mmol/L (3.5-5.5); Sodium, Blood 135 mmol/L (136-145); Total Protein, Blood 6.9 g/dL (6.4-8.2)
--- NOTE | 2019-03-04 06:24 | NUR ---
SHIFT SUMMARY PATIENT IS ALERT AND ORIENTED, INDEPENDENT IN ROOM. RECIEVING OCTREOTIDE INFUSION. PATIENT COMPLAINS OF LEFT SIDED PAIN, RELIEVED WITH MEDICATION. PATIENT WAS APPROPRIATE THROUGHOUT THE NIGHT. DID NOT GO OUTSIDE. PT FELL ASLEEP AROUND MIDNIGHT AND APPEARS TO BE SLEEPING WELL. VITALS STABLE. NO NEW CHANGES.
[2019-03-04] MEDS ORDERED: ALBU90OI INH (10:17)
[2019-03-04] MEDS ORDERED: CIPR500 PO (10:17)
[2019-03-04] MEDS ORDERED: NICO21TP TOP (10:18)
[2019-03-04] MEDS ORDERED: METO5A PO (10:18)
[2019-03-04] MEDS ORDERED: ONDA4ODT MM (10:18)
[2019-03-04] MEDS ORDERED: Florastor250 MG PO (10:19)
--- NOTE | 2019-03-04 11:05 | NUR ---
DISCHARGE NOTE PT DISCHARGED TO HOME, INSTUCTED TO FOLLOW UP WITH PCP AND DR ELIZONDO. PT AGREES. PT EDUCATED ON MEDICATIONS AND INSTRUCTED TO ADMINISTRATIVE ASSISTANT OFFICE MANAGER MEDS FROM PHARMACY, AND EDUCATED ON SMOKING CESSATION. PT ESCORTED OUT WITH RN ESCORT WITH STEADY GAIT AT ABOUT 1040. IV DC'D AND BELONGINGS RETURNED
[2019-04-17] MEDS ORDERED: Propranolol HCl60 MG (13:24)
== END 2019-03-04 10:35 | disposition home or self-care (01) | DRG 370 ==
LOC: ER 09:31 → ERHOLD 09:32 → ER 09:32 → PCU 09:32 → ERHOLD 16:21 → PCU 16:21 → MEDS 03-01 16:00 → PCU 03-01 16:00 → MEDS 03-01 18:13 → ENPENDDIS 03-04 09:50 → MEDS 03-04 10:35
PROVIDERS: Emergency Medicine; Internal Medicine Gastroenterology; ADMIT Family Medicine
PROC: 06L38CZ Occlusion of Esophageal Vein with Extraluminal Device, Via Natural or Artificial Opening Endoscopic (ICD-10-PCS; principal; 2019-03-01 09:50)
DX: I85.01 Esophageal varices with bleeding (principal); F95.2 Tourette's disorder; F17.210 Nicotine dependence, cigarettes, uncomplicated; K70.31 Alcoholic cirrhosis of liver with ascites; J44.9 Chronic obstructive pulmonary disease, unspecified
CPT/HCPCS: 36415; 80053; 82330; 83690; 85025; 85384; 85610; 85730; 86850; 86900; 86901; 94760; 96365; 96366; 96367; 96375; 96376; 99285-25; C9113; G0378; G0480; J0696; J2270; J2354; J2704; J7050; J7120

== ENCOUNTER 2019-04-26 07:36 | Day surgery (SDC) | payer OTHER ==
[~2019-04-26] VITALS: Ht 182.9 cm; Wt 113.5 kg
[~2019-04-26 07:36] MED LIST changes: +ALBU90OI INH; +Florastor250 MG PO; +METO5A PO; +Propranolol HCl60 MG; +Zocor20 MG PO
--- NOTE | 2019-04-26 09:28 | NUR ---
04/26/19 0928 Lexi Torres LATE ENTRY--DR ELIZONDO INFORMED ME THAT HE CONSIDERS THE PROCEDURE INCOMPLETE. HE WAS ABLE TO GET THE SCOPE DOWN INTO THE STOMACH BUT WAS UNABLE TO COMPLETE PROCEDURE AND LOOK INTO SMALL BOWEL DUE TO THE PATIENT MOVING AND WRETCHING AND GAGGING. HE EXPLAINED HE WAS WORRIED ABOUT CAUSING A TEAR. PROCEDURE WAS STOPPED AT 0900.
== END 2019-04-26 09:27 | disposition home or self-care (01) ==
LOC: ORSCSDS 07:36
PROVIDERS: Internal Medicine Gastroenterology
PROC: 0DJ08ZZ Inspection of Upper Intestinal Tract, Via Natural or Artificial Opening Endoscopic (ICD-10-PCS; principal; 2019-04-26 09:00)
DX: I85.00 Esophageal varices without bleeding (principal); K74.60 Unspecified cirrhosis of liver; K76.6 Portal hypertension; K31.89 Other diseases of stomach and duodenum; I10 Essential (primary) hypertension; F17.210 Nicotine dependence, cigarettes, uncomplicated; Z79.899 Other long term (current) drug therapy
CPT/HCPCS: J2704; J7120

== ENCOUNTER 2019-04-28 07:03 | Day surgery (SDC) | payer OTHER ==
[~2019-04-28] VITALS: Ht 182.9 cm; Wt 114.1 kg
== END 2019-04-28 09:03 | disposition home or self-care (01) ==
LOC: ORSCSDS 07:03
PROVIDERS: Internal Medicine Gastroenterology
PROC: 0DJ08ZZ Inspection of Upper Intestinal Tract, Via Natural or Artificial Opening Endoscopic (ICD-10-PCS; principal; 2019-04-28 08:15)
DX: I85.00 Esophageal varices without bleeding (principal); K76.6 Portal hypertension; K31.89 Other diseases of stomach and duodenum; I10 Essential (primary) hypertension; K21.9 Gastro-esophageal reflux disease without esophagitis; K70.10 Alcoholic hepatitis without ascites; E66.01 Morbid (severe) obesity due to excess calories; Z68.34 Body mass index [BMI] 34.0-34.9, adult; Z79.899 Other long term (current) drug therapy
CPT/HCPCS: J1430; J2250; J2405; J2704; J7120

== ENCOUNTER 2019-09-26 06:52 | Day surgery (SDC) | payer OTHER ==
[~2019-09-26] VITALS: Ht 182.9 cm; Wt 118.3 kg
[~2019-09-26 06:52] MED LIST changes: +ESCI10 PO; +FAMO20 PO; +LORA1 PO; +Mirtazapine7.5 MG PO; +Naproxen500 M1 PO; +OMEPRAZOLE20 MG PO; +PROP60 PO
== END 2019-09-26 08:55 | disposition home or self-care (01) ==
LOC: ORSCSDS 06:52
PROVIDERS: Internal Medicine Gastroenterology
PROC: 0DJ08ZZ Inspection of Upper Intestinal Tract, Via Natural or Artificial Opening Endoscopic (ICD-10-PCS; principal; 2019-09-26 08:15)
DX: K21.9 Gastro-esophageal reflux disease without esophagitis (principal); K92.1 Melena; K74.60 Unspecified cirrhosis of liver; I85.00 Esophageal varices without bleeding; K29.80 Duodenitis without bleeding; K76.6 Portal hypertension; K70.10 Alcoholic hepatitis without ascites; K31.89 Other diseases of stomach and duodenum; I10 Essential (primary) hypertension; E66.9 Obesity, unspecified; Z68.35 Body mass index [BMI] 35.0-35.9, adult; Z79.899 Other long term (current) drug therapy
CPT/HCPCS: J0330; J0461; J2405; J2704; J7120

== ENCOUNTER 2023-06-30 11:18 | Day surgery (SDC) | payer OTHER ==
[~2023-06-30] VITALS: Ht 182.9 cm; Wt 97.4 kg
[2023-06-30] MEDS ORDERED: PANT20 PO (12:22)
[2023-06-30 16:30] VITALS: BP 120/73
== END 2023-06-30 16:20 | disposition home or self-care (01) ==
LOC: ORSCSDS 11:18
PROVIDERS: Internal Medicine Gastroenterology
PROC: 0DJ08ZZ Inspection of Upper Intestinal Tract, Via Natural or Artificial Opening Endoscopic (ICD-10-PCS; principal; 2023-06-30 12:30)
DX: K70.30 Alcoholic cirrhosis of liver without ascites (principal); K21.9 Gastro-esophageal reflux disease without esophagitis; I10 Essential (primary) hypertension; F41.1 Generalized anxiety disorder; J44.9 Chronic obstructive pulmonary disease, unspecified; E66.9 Obesity, unspecified; Z68.30 Body mass index [BMI] 30.0-30.9, adult; F17.210 Nicotine dependence, cigarettes, uncomplicated; Z79.899 Other long term (current) drug therapy
CPT/HCPCS: J2704; J7120

== ENCOUNTER 2023-10-11 06:40 | Emergency (ER) | payer OTHER ==
[~2023-10-11] VITALS: Ht 182.9 cm; Wt 98.0 kg
[~2023-10-11 06:40] MED LIST changes: +PANT20 PO
[2023-10-11 07:38] VITALS: BP 127/98
[2023-10-11 07:53] LABS: BASOPHILS ABSOLUTE AUTO 0.07 K/mm3 (0.00-0.23); BASOPHILS PERCENT AUTO 1 % (0-2); EOSINOPHILS ABSOLUTE AUTO 0.03 K/mm3 (0.00-0.68); EOSINOPHILS PERCENT AUTO 0 % (0-6); Hemoglobin 17.5 g/dL (13.5-17.5); IMMATURE GRAN ABSOLUTE AUTO 0.06 K/mm3 (0.00-0.10); IMMATURE GRAN PERCENT AUTO 1 % (0-1); LYMPHOCYTES ABSOLUTE AUTO 3.64 K/mm3 (0.84-5.20); LYMPHOCYTES PERCENT AUTO 32 % (21-46); MONOCYTES ABSOLUTE AUTO 0.73 K/mm3 (0.16-1.47); MONOCYTES PERCENT AUTO 6 % (4-13); Mean Corpuscular HGB 29.1 pg (26.0-34.0); Mean Corpuscular HGB Conc 34.3 g/dL (31.5-36.5); Mean Corpuscular Volume 85 fL (80-100); Mean Platelet Volume 9.4 fL (9.1-12.4); NEUTROPHILS ABSOLUTE AUTO 6.84 K/mm3 (1.96-9.15); NEUTROPHILS PERCENT AUTO 60 % (41-73); Platelet Count 174 K/mm3 (150-400); RDW Coefficient Variation 12.9 % (11.7-14.2); RDW Standard Deviation 39.4 fL (35.1-46.3); Red Blood Cell Count 6.02 M/mm3 (4.30-5.90); White Blood Cell Count 11.37 K/mm3 (4.00-11.30)
[2023-10-11 08:10] LABS: Albumin, Blood 3.6 g/dL (3.4-5.0); Albumin/Globulin Ratio 1.1 (0.8-1.8); Bun/Creatinine Ratio 14.8 (12.0-20.0); Calcium, Blood 8.4 mg/dL (8.5-10.1); Creatinine, Blood 0.88 mg/dL (0.60-1.20); Globulin, Blood 3.4 g/dL (2.2-4.0); Potassium, Blood 3.8 mmol/L (3.5-5.5)
== END 2023-10-11 09:40 | disposition home or self-care (01) ==
LOC: ER 06:40
PROVIDERS: Emergency Medicine
DX: K42.9 Umbilical hernia without obstruction or gangrene (principal); F17.200 Nicotine dependence, unspecified, uncomplicated; Z87.19 Personal history of other diseases of the digestive system
CPT/HCPCS: 80053; 85025; 96374; 96375; 99283-25; A9270; J1170; J2060; J2405